=== PATIENT | male | born 2005 | race Two or more races ===

== ENCOUNTER 2024-03-08 06:18 | Day surgery (SDC) | payer OTHER ==
[2024-03-08] MEDS ORDERED: CHLORHEXIDINE GLUCONATE 120 ML BOTTLE TOP ONE (13:30)
[2024-03-08] MEDS ORDERED: THROMBIN,HU/FIBRINOGEN/CALCIUM 10 ML SYRINGE TOP ONE (13:30)
[2024-03-08] MEDS ORDERED: CEFTRIAXONE SODIUM 2,000 MG VIAL IV ONE (13:30)
[2024-03-08] MEDS ORDERED: METRONIDAZOLE/SODIUM CHLORIDE 500 MG/100 ML PIGGYBACK IV ONE (13:30)
[2024-03-08] MEDS ORDERED: LIDOCAINE HCL 1%/EPINEPHRINE 20ML VIAL IJ ONE (13:30)
[2024-03-08] MEDS ORDERED: POVIDONE-IODINE 118 ML BOTT TOP ONE (13:30)
[2024-03-08] MEDS ORDERED: BUPIVACAINE HCL 30 ML VIAL IJ ONE (13:30)
== END 2024-03-08 20:00 | disposition home or self-care (01) ==
LOC: CIR.AMB 06:18
PROVIDERS: ATTEND Colon & Rectal Surgery
DX: L05.91 Pilonidal cyst without abscess (principal)

== ENCOUNTER → 2024-03-08 08:49 | Outpatient (CLI) | payer OTHER ==
[2024-03-08 09:48] LABS: INR 1.26; PARTIAL THROMBOPLASTIN TIME 35.1 SECONDS (22.0-34.0); PROTHROMBIN TIME 13.5 SECONDS (9.0-11.5)
== END | disposition home or self-care (01) ==
LOC: LAB 08:49
PROVIDERS: ATTEND Colon & Rectal Surgery
DX: D68.9 Coagulation defect, unspecified (principal)

== ENCOUNTER 2024-04-01 17:39 | Inpatient (IN) | payer OTHER ==
[~2024-04-01] VITALS: Ht 188 cm; Wt 91.8 kg
--- NOTE | 2024-04-01 18:38 | NUR ---
SE RECIBE PTE PEDIATRICO EN COMPANIA DE FAMILIAR EL CUAL REFIERE TUVO CIRUGIA EL PASADO 03/08/24 POR DE QUISTE PILONIDAL EN EL AREA DE EL RECTO CON ABCCESO.PTE VISITA LA JOVANA DE EMERGENCIA EL SALAS DE HOY PRESENTA SECRECIONES EN LA HERIDA DE LA CIRUGIA Y PRESENTA ABCCESO EN EL LADO NATALIA.SE DARNELL S/V Y SE UBICA.
[2024-04-01] MEDS ORDERED: KETOROLAC TROMETHAMINE 30 MG VIAL IV ONE (20:30)
--- NOTE | 2024-04-01 20:40 | NUR ---
PTE ALERTA Y ORIENTADO X3, EN COMPANIA DE FAMILIARES QUIENES SE EDUCAN SOBRE TX MEDICO Y REFIERE ACEPTAR. SE CANALIZA Y SE COELCTAN MUESTRAS DE LAB BAJO MEDIDAS ASEPTICAS. SE ADMINSITRA MED DIMITRI ORDEN MEDICA Y NO PRESENTA REACCION
[2024-04-01 20:43] LABS: HEMATOCRIT 44.7 % (39.0-48.0); HEMOGLOBIN 15.6 g/dL (13-16.00); MEAN CELL VOLUME 87.9 fL (80.0-100.00); MEAN CORPUSCULAR HEMOGLOBIN 30.6 pg (27.00-32.0); MEAN CORPUSCULAR HGB CONC 34.8 g/dl (32.0-36.0); PLATELET COUNT 324 K/uL (150-450); RED BLOOD COUNT 5.09 M/uL (4.00-6.00); RED CELL DISTRIBUTION WIDTH 13.7 % (11.5-14.5)
[2024-04-01] MEDS ORDERED: PIPERACILLIN/TAZOBACTAM SODIUM 3.375 GM in DEXTROSE 5 % IN WATER 100 ML IV SCH ×2 (21:00→21:44)
[2024-04-01] MEDS ORDERED: DEXTROSE 5 %-0.45 % SOD CHLORD 500 ML IV SCH (21:15)
[2024-04-01] MEDS ORDERED: DEXTROSE 5 %-0.45 % SOD CHLORD 1,000 ML IV SCH (21:45)
[2024-04-01] MEDS ORDERED: LACTOBACILLUS ACIDOPHILUS 1 CAP CAP PO SCH (21:45)
[2024-04-01] MEDS ORDERED: KETOROLAC TROMETHAMINE 30 MG VIAL IV PRN (21:45)
[2024-04-01 22:30] VITALS: BP 97/68; O2SAT 100
[2024-04-01 22:41] VITALS: BP 97/67
[2024-04-02 01:42] VITALS: BP 106/66; O2SAT 100
[2024-04-02] MEDS ORDERED: PIPERACILLIN/TAZOBACTAM SODIUM 3.375 GM in 0.9 % SODIUM CHLORIDE 100 ML IV SCH (07:21)
[2024-04-02] MEDS ORDERED: KETOROLAC TROMETHAMINE 30 MG VIAL IV PRN (07:30)
[2024-04-02 08:40] VITALS: BP 100/64; O2SAT 98
[2024-04-02] MEDS ORDERED: MUPIROCIN 22 GM OINT..GM TUBE NASAL SCH (13:14)
[2024-04-02 13:44] LABS: PH,URINE 6.5 (5.0-8.0); URINE APPEARANCE Clear; URINE BILIRRUBIN Negative (NEGATIVE); URINE BLOOD Negative; URINE COLOR Yellow; URINE GLUCOSE Negative (NEGATIVE); URINE KETONE Negative (NEGATIVE); URINE LEUKOCYTE Negative; URINE NITRATE Negative; URINE PROTEIN Negative (NEGATIVE)
[2024-04-02 13:59] LABS: URINE BACTERIA 1.2 uL (0.0-1933); URINE EPITHELIAL CELLS 0.3 uL (0.0-38.8); URINE RBC 0.7 uL (0.0-20.8)
[2024-04-02 14:19] LABS: ALBUMIN 3.5 gm/dL (3.4-5.0); BILIRUBIN TOTAL 1.53 mg/dL (0.3-1.2); CALCIUM 8.9 mg/dL (8.5-10.1); CREATININE SERUM 1.01 mg/dL (0.70-1.30); GFR 94.18; GLOBULINA 3.2 G/DL (2.4-3.5); POTASSIUM 3.73 mEq/L (3.5-5.1); TOTAL PROTEIN 6.7 gm/dL (6.4-8.2)
[2024-04-02 16:00] VITALS: BP 113/67; O2SAT 99
[2024-04-03 00:55] VITALS: BP 113/68; O2SAT 98
[2024-04-03 07:40] VITALS: BP 114/63; O2SAT 99
[2024-04-03] MEDS ORDERED: TRAMADOL HCL 50 MG TABLET PO PRN (11:00)
[2024-04-03] MEDS ORDERED: CHLORHEXIDINE GLUCONATE 120 ML BOTTLE TOP SCH (17:00)
[2024-04-03 17:29] VITALS: BP 122/57; O2SAT 99
[2024-04-04 00:40] VITALS: BP 113/68; O2SAT 99
[2024-04-04 08:12] VITALS: BP 112/70; O2SAT 98
[2024-04-04 16:00] VITALS: BP 119/63; O2SAT 98
[2024-04-04] MEDS ORDERED: POLYETHYLENE GLYCOL 3350 17 GM BLIST.PACK PO SCH (21:00)
[2024-04-05 08:00] VITALS: BP 126/76; O2SAT 98
[2024-04-05] MEDS ORDERED: DEXTROSE 5 %-0.45 % SOD CHLORD 1,000 ML IV SCH (09:00)
[2024-04-05 16:00] VITALS: BP 116/64; O2SAT 100
[2024-04-06] VITALS: BP 123/61; O2SAT 100
[2024-04-06 08:20] VITALS: BP 107/57; O2SAT 100
== END 2024-04-06 13:52 | disposition home or self-care (01) | DRG 863 ==
LOC: ER 17:41 → EMR PED 17:43 → PED 22:31
PROVIDERS: Emergency Medicine Pediatric Emergency Medicine; ADMIT Emergency Medicine; ATTEND Emergency Medicine
DX: T81.49XA Infection following a procedure, other surgical site, initial encounter (principal); K61.0 Anal abscess; B96.20 Unspecified Escherichia coli [E. coli] as the cause of diseases classified elsewhere; B96.6 Bacteroides fragilis [B. fragilis] as the cause of diseases classified elsewhere